=== PATIENT | male | born 1995 | race Caucasian/White ===

== ENCOUNTER 2018-07-01 17:47 | Emergency (ER) | payer OTHER, SELFPAY ==
[2018-07-01 18:01] VITALS: BP 137/78; PULSE 88; RESP 14; TEMP 36.3; O2SAT 99
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
[2018-07-01 19:59] VITALS: BP 123/82; PULSE 86; RESP 18; O2SAT 96
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
== END 2018-07-01 19:59 | disposition home or self-care (01) ==
PROVIDERS: Emergency Provider Emergency Medicine
DX: S80.11XA Contusion of right lower leg, initial encounter (principal); V29.9XXA Motorcycle rider (driver) (passenger) injured in unspecified traffic accident, initial encounter
CPT/HCPCS: 73590; 99282; 99283